=== PATIENT | male | born 1995 | race Caucasian/White ===

== ENCOUNTER → 2018-04-02 | Outpatient (REF) | payer OTHER | LOC: M LAB REF 09:30 | DX: D04.39 Carcinoma in situ of skin of other parts of face (principal) | CPT/HCPCS: 88305 ==

== ENCOUNTER → 2022-07-18 | Outpatient (REF) | payer OTHER | LOC: M WUC 09:46 | PROVIDERS: ATTEND Student in an Organized Health Care Education/Training Program | DX: J02.9 Acute pharyngitis, unspecified (principal) ==